=== PATIENT | female | born 1935 | race Caucasian/White ===

== ENCOUNTER 2019-10-25 18:50 | Emergency (ER) | payer MEDICARE, BC ==
[~2019-10-25] VITALS: Ht 154.9 cm; Wt 65.9 kg
[2019-10-25 19:14] LABS: BASOPHILS # (AUTO) 0.1 X10'3 (0-0.2); EOSINOPHILS # (AUTO) 0.9 X10'3 (0-0.9); EOSINOPHILS % (AUTO) 9.3 % (0-6); HEMATOCRIT 39.8 % (35.0-45.0); HEMOGLOBIN 13.5 g/dl (12.0-16.0); LYMPHOCYTES # (AUTO) 4.1 X10'3 (1.1-4.8); LYMPHOCYTES % (AUTO) 41.7 % (21-51); MEAN CORPUSCULAR HEMOGLOBIN 32.1 PG (27.0-31.0); MEAN CORPUSCULAR VOLUME 94.4 FL (78-98); MEAN PLATELET VOLUME 7.4 FL (7.4-10.4); MONOCYTES # (AUTO) 0.8 X10'3 (0-0.9); MONOCYTES % (AUTO) 8.4 % (2-12); NEUTROPHILS # (AUTO) 3.9 X10'3 (1.8-7.7); NEUTROPHILS % (AUTO) 39.6 % (42-75); PLATELET COUNT 387 X10'3 (140-440); RED BLOOD COUNT 4.22 X10'6 (4.20-5.60); RED CELL DISTRIBUTION WIDTH 13.5 % (11.5-14.5); WHITE BLOOD COUNT 9.8 X10'3 (4.5-11.0)
[2019-10-25 19:23] LABS: PARTIAL THROMBOPLASTIN TIME 27 SECONDS (22-32)
[2019-10-25 19:24] LABS: ALANINE AMINOTRANSFERASE 24 U/L (12-78); ALBUMIN 3.9 G/DL (3.4-5.0); ALBUMIN/GLOBULIN RATIO 1.3 (1.1-1.5); ALKALINE PHOSPHATASE 84 IU/L (46-116); ANION GAP 7 (8-16); ASPARTATE AMINO TRANSFERASE 17 U/L (10-37); BILIRUBIN,TOTAL 0.1 MG/DL (0.1-1.0); BLOOD UREA NITROGEN 24 MG/DL (7-18); BUN/CREATININE RATIO 29.3 (6.6-38.0); CALCIUM 9.3 MG/DL (8.5-10.1); CHLORIDE 103 MMOL/L (99-107); CREATININE 0.82 MG/DL (0.40-0.90); GLUCOSE 133 MG/DL (70-104); POTASSIUM 4.1 MMOL/L (3.5-5.1); SODIUM 140 MMOL/L (135-145); TOTAL CARBON DIOXIDE 29.7 MMOL/L (24-32); eGFR 67 ML/MIN
[2019-10-25 19:26] LABS: TROPONIN I < 0.04 NG/ML (0.0-0.05)
--- NOTE | 2019-10-25 19:58 | NUR ---
Called for level 1 stroke alert. Pt reports onset at 1815 tonite. Pt describes a very tense interaction with a goat who was ill when suddenly she experienceda sensation that her tongue literally rolled over and stuck to the roof of her mouth. Pt stated couldn't speak and began to drool. Pt says this lasted about 5 minutes. Pt now describes it as though her mouth in "unthawing." Pt feels nearly back to normal. Speech is slurred some at times. Pt drove self to hospital. Denies any weakness on one side. No sensory changes noted. No aphasia or ataxia. 1939 Tele neuro exam with Dr Bailey completed. Dr Bailey feels highly unlikely this event is stroke related. Dr Bailey feels pt could be discharged if back to normal and all labs are WNL. This was communicated by me to Dr Can.
[2019-10-25 20:36] VITALS: BP 123/68
== END 2019-10-25 20:37 | disposition home or self-care (01) ==
LOC: ER 18:51
DX: K14.8 Other diseases of tongue (principal)
CPT/HCPCS: 36415; 70450; 71045; 80053; 82948; 84484; 85025; 85610; 85730; 93005; 99285

== ENCOUNTER 2019-10-30 14:44 | Emergency (ER) | payer MEDICARE, BC ==
[~2019-10-30] VITALS: Ht 154.9 cm; Wt 70.0 kg
[2019-10-30 18:58] VITALS: BP 181/86
--- NOTE | 2019-10-30 19:33 | NUR ---
dr. be at bedside assessing patient, rr even un labored, airway patent no observable s/s of acute stress at this time will continue to monitor
== END 2019-10-30 19:55 | disposition home or self-care (01) ==
LOC: ER 14:44
DX: R13.13 Dysphagia, pharyngeal phase (principal); R53.1 Weakness; I10 Essential (primary) hypertension; R47.9 Unspecified speech disturbances
CPT/HCPCS: 93005; 99283